=== PATIENT | female | born 1990 | race Hispanic/Latino ===

== ENCOUNTER 2017-03-21 15:41 | Inpatient (IN) | payer MEDICAID ==
[2017-03-21] MEDS ORDERED: CLEOCIN 900 MG/50 mL 900 MG/50 ML BAG IV ONE (18:59)
--- NOTE | 2017-03-21 19:01 | Emergency Department Report ---
- General Chief complaint: Skin Rash Stated complaint: RASH Time Seen by Provider: 03/21/17 17:29 Source: patient Mode of arrival: Ambulatory Limitations: No Limitations - History of Present Illness Initial comments: This is a 26-year-old female nontoxic, well nourished in appearance, no acute signs of distress presents to the ED with c/o of flare up of eczema. Patient stated this is a chronic condition for many years and is getting worse. 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 Patient denies any fever, chills, headache, nausea, vomiting, chest pain, shortness of breathe, numbness, tingling, stiff neck, or headache. Patient denies any allergies or PMH besides eczema. MD complaint: rash -: year(s) Location: generalized Severity: mild Severity scale (0 -10): 8 Quality: aching Consistency: constant Improves with: none Worsens with: none Context: none Associated symptoms: denies other symptoms Treatments Prior to Arrival: none - Related Data Home Medications Medication Instructions Recorded Confirmed Last Taken Loratadine [Loratadine] 10 mg PO DAILY 08/20/15 08/20/15 08/18/15 Previous Rx's Medication Instructions Recorded Last Taken Type Ferrous Sulfate [Feosol 325 MG tab] 325 mg PO BID #60 tablet 02/23/13 Unknown Rx Ibuprofen [Motrin] 800 mg PO TID PRN #30 tablet 02/23/13 Unknown Rx [id number]/Iron Fum/Folic/Docusate 1 each PO QDAY #30 tablet 02/23/13 Unknown Rx [ 19 Tablet] Docusate Sodium [Colace] 100 mg PO BID #60 capsule 02/25/13 Unknown Rx Ibuprofen [Motrin 600 MG tab] 600 mg PO Q8H PRN #30 tablet 08/21/15 Unknown Rx Multivitamin with Iron [Tab-A-Meagan 1 each PO DAILY #30 tablet 08/21/15 Unknown Rx with Iron] oxyCODONE /ACETAMINOPHEN [Percocet 1 tab PO Q6HR PRN #30 tablet 08/21/15 Unknown Rx 5/325] HYDROcodone/APAP 5-325 [[place] 1 each PO Q6HR PRN #20 tablet 03/09/16 Unknown Rx 5-325 mg TAB] Triamcinolone 0.5% 0.5 cream TP BID PRN #1 03/09/16 Unknown Rx diphenhydrAMINE [Benadryl CAP] 25 mg PO Q8HR PRN #20 capsule 03/09/16 Unknown Rx Allergies Allergy/AdvReac Type Severity Reaction Status Date / Time No Known Allergies Allergy Verified 02/23/13 07:46 Abscess Boil [facility] Chief Complaint: Skin Rash Stated Complaint: RASH Time Seen by Provider: 03/21/17 17:29 Home Medications: Home Medications Medication Instructions Recorded Confirmed Last Taken Loratadine [Loratadine] 10 mg PO DAILY 08/20/15 08/20/15 08/18/15 Previous Rx's Medication Instructions Recorded Last Taken Type Ferrous Sulfate [Feosol 325 MG tab] 325 mg PO BID #60 tablet 02/23/13 Unknown Rx Ibuprofen [Motrin] 800 mg PO TID PRN #30 tablet 02/23/13 Unknown Rx [id number]/Iron Fum/Folic/Docusate 1 each PO QDAY #30 tablet 02/23/13 Unknown Rx [ 19 Tablet] Docusate Sodium [Colace] 100 mg PO BID #60 capsule 02/25/13 Unknown Rx Ibuprofen [Motrin 600 MG tab] 600 mg PO Q8H PRN #30 tablet 08/21/15 Unknown Rx Multivitamin with Iron [Tab-A-Meagan 1 each PO DAILY #30 tablet 08/21/15 Unknown Rx with Iron] oxyCODONE /ACETAMINOPHEN [Percocet 1 tab PO Q6HR PRN #30 tablet 08/21/15 Unknown Rx 5/325] HYDROcodone/APAP 5-325 [[place] 1 each PO Q6HR PRN #20 tablet 03/09/16 Unknown Rx 5-325 mg TAB] Triamcinolone 0.5% 0.5 cream TP BID PRN #1 03/09/16 Unknown Rx diphenhydrAMINE [Benadryl CAP] 25 mg PO Q8HR PRN #20 capsule 03/09/16 Unknown Rx Allergies/Adverse Reactions: Allergies Allergy/AdvReac Type Severity Reaction Status Date / Time No Known Allergies Allergy Verified 02/23/13 07:46 ED Review of Systems ROS: Stated complaint: RASH Other details as noted in HPI Constitutional: denies: chills, fever Eyes: denies: eye pain, eye discharge, vision change ENT: denies: ear pain, throat pain Respiratory: denies: cough, shortness of breath, wheezing Cardiovascular: denies: chest pain, palpitations Endocrine: no symptoms reported Gastrointestinal: denies: abdominal pain, nausea, diarrhea Genitourinary: denies: urgency, dysuria, discharge Musculoskeletal: denies: back pain, joint swelling, arthralgia Skin: rash, lesions, pruritus Neurological: denies: headache, weakness, paresthesias Psychiatric: denies: anxiety, depression Hematological/Lymphatic: denies: easy bleeding, easy bruising ED Past Medical Hx - Past Medical History Previous Medical History?: Yes Hx Hypertension: No Hx Congestive Heart Failure: No Hx Diabetes: No Hx Deep Vein Thrombosis: No Hx Renal Disease: No Hx Sickle Cell Disease: No Hx Seizures: No Hx Psychiatric Treatment: Yes (anxiety) Hx Asthma: No Hx COPD: No Hx HIV: No Additional medical history: eczema, Skin rash - Surgical History Past Surgical History?: Yes Additional Surgical History: 4 c-sections - Social History Smoking Status: Current Every Day Smoker Substance Use Type: Prescribed - Medications Home Medications: Home Medications Medication Instructions Recorded Confirmed Last Taken Type Ferrous Sulfate [Feosol 325 MG tab] 325 mg PO BID #60 tablet 02/23/13 08/20/15 Unknown Rx Ibuprofen [Motrin] 800 mg PO TID PRN #30 tablet 02/23/13 08/20/15 Unknown Rx [id number]/Iron Fum/Folic/Docusate 1 each PO QDAY #30 tablet 02/23/13 08/20/15 Unknown Rx [ 19 Tablet] Docusate Sodium [Colace] 100 mg PO BID #60 capsule 02/25/13 08/20/15 Unknown Rx Loratadine [Loratadine] 10 mg PO DAILY 08/20/15 08/20/15 08/18/15 History Ibuprofen [Motrin 600 MG tab] 600 mg PO Q8H PRN #30 tablet 08/21/15 Unknown Rx Multivitamin with Iron [Tab-A-Meagan 1 each PO DAILY #30 tablet 08/21/15 Unknown Rx with Iron] oxyCODONE /ACETAMINOPHEN [Percocet 1 tab PO Q6HR PRN #30 tablet 08/21/15 Unknown Rx 5/325] HYDROcodone/APAP 5-325 [[place] 1 each PO Q6HR PRN #20 tablet 03/09/16 Unknown Rx 5-325 mg TAB] Triamcinolone 0.5% 0.5 cream TP BID PRN #1 03/09/16 Unknown Rx diphenhydrAMINE [Benadryl CAP] 25 mg PO Q8HR PRN #20 capsule 03/09/16 Unknown Rx ED Physical Exam - General Limitations: No Limitations General appearance: alert, in no apparent distress - Head Head exam: Present: atraumatic, normocephalic, normal inspection - Eye Eye exam: Present: normal appearance, PERRL, EOMI. Absent: scleral icterus, conjunctival injection, nystagmus, periorbital swelling, periorbital tenderness Pupils: Present: normal accommodation - ENT ENT exam: Present: normal exam, normal orophraynx, mucous membranes moist, TM's normal bilaterally, normal external ear exam - Neck Neck exam: Present: normal inspection, full ROM. Absent: tenderness, meningismus, lymphadenopathy, thyromegaly - Respiratory Respiratory exam: Present: normal lung sounds bilaterally. Absent: respiratory distress, wheezes, rales, rhonchi, stridor, chest wall tenderness, accessory muscle use, decreased breath sounds, prolonged expiratory - Cardiovascular Cardiovascular Exam: Present: regular rate, normal rhythm, normal heart sounds. Absent: irregular rhythm, systolic murmur, diastolic murmur, rubs, gallop - GI/Abdominal GI/Abdominal exam: Present: soft, normal bowel sounds. Absent: distended, tenderness, guarding, rebound, rigid, diminished bowel sounds - Rectal Rectal exam: Present: deferred - Extremities Exam Extremities exam: Present: normal inspection, full ROM, normal capillary refill. Absent: tenderness, pedal edema, joint swelling, calf tenderness - Back Exam Back exam: Present: normal inspection, full ROM. Absent: tenderness, CVA tenderness (R), CVA tenderness (L), muscle spasm, paraspinal tenderness, vertebral tenderness, rash noted - Neurological Exam Neurological exam: Present: alert, oriented X3, CN II-XII intact, normal gait, reflexes normal - Psychiatric Psychiatric exam: Present: normal affect, normal mood - Skin Skin exam: Present: warm, dry, intact, normal color, rash, other (diffuse crusting and erythema with urticaria ) - Other Other exam information: No abscess or swelling ntoed. NO cellultisit noted. ED Course Vital Signs 03/21/17 03/21/17 15:45 20:34 Temperature 97.9 F 98.7 F Pulse Rate 98 H 88 Respiratory 24 18 Rate Blood Pressure 157/97 O2 Sat by Pulse 98 100 Oximetry - Reevaluation(s) Reevaluation #1: 03/21/17 19:07 Patient is speaking in full sentences with no signs of distress noted. - Consultations Consultation #1: 03/21/17 20:37 Dr. Washington (patients Dermatolgoist) was called at [phone] with no answer or call back. Left a voicemail. Consultation #2: 03/21/17 21:17 Dr. Lin has been consulted about patient history, physical exam, and labs and examined patient and stated to admit patient for IV antibiotics. ED Medical Decision Making - Lab Data Result diagrams: 03/21/17 19:10 03/21/17 19:10 - Medical Decision Making This is a 26-year-old female that presents with eczema flare-up and contact dermatitis. Patient is stable and was examined by me. Patient received Clinda 900 IV and Solu-medrol in the ED. Patient is discharge with clinda for possible MRSA. CBC, BMP. Lacitact acid, and Blood cultures obtained with slight elevation of WBCs. Vital signs stable before discharge. Patients earth burner was called and left a voicemail for a return call back Dr. Washington at [phone] , but no call back has been made. Dr. Lin examined patient and stated to admit for IV antibiotcs and further eval. Dr. Dyer was consulted about patient history , physical exam, and labs. Patient was notified of plan of care and agrees for admission. Critical care attestation.: If time is entered above; I have spent that time in minutes in the direct care of this critically ill patient, excluding procedure time. ED Disposition Clinical Impression: Eczema Qualifiers: Eczema type: unspecified Qualified Code(s): L30.9 - Dermatitis, unspecified Cellulitis Qualifiers: Site of cellulitis: unspecified site Qualified Code(s): L03.90 - Cellulitis, unspecified Disposition: OP ADMIT IP TO THIS HOSP Is pt being admited?: Yes Does the pt Need Aspirin: No Condition: Stable
[2017-03-21 19:22] LABS: Eosinophils % (Auto) 3.2 % (0.0-4.3); Hematocrit 45.5 % (30.3-42.9); Mean Corpuscular HGB Conc 33 % (30-34); Mean Corpuscular Hemoglobin 32 pg (28-32); Mean Corpuscular Volume 98 fl (79-97); Platelet Count 445 K/mm3 (140-440); Red Blood Count 4.64 M/mm3 (3.65-5.03); Red Cell Distribution Width 16.2 % (13.2-15.2); White Blood Count 13.8 K/mm3 (4.5-11.0)
[2017-03-21 19:40] LABS: Anion Gap 23 mmol/L; BUN/Creatinine Ratio 24; Blood Urea Nitrogen 12 mg/dL (7-17); Calcium 9.8 mg/dL (8.4-10.2); Carbon Dioxide 22 mmol/L (22-30); Chloride 101.7 mmol/L (98-107); Glucose 82 mg/dL (65-100); Potassium 4.2 mmol/L (3.6-5.0); Sodium 142 mmol/L (137-145)
[2017-03-21] MEDS ORDERED: TORADOL ONE (22:43)
[2017-03-21] MEDS ORDERED: TORADOL IV ONE (22:45)
--- NOTE | 2017-03-21 23:00 | History and Physical Report ---
History of Present Illness Date of examination: 03/21/17 Date of admission: 03/21/17 Chief complaint: chief complaint: 26-year-old female presents with rash all over which has increased in intensity.--- 1 week History of present illness: history of present illness: 26-year-old female with history of eczema comes in for increasing redness of the rash over the last 1 week.patient has been having pain and redness on the rash. Pain is about 8 or 10. She feels that she has a staph infection with MRSA.Patient has eczema for many years and was diagnosed with MRSA infection in December 2016 and was treated and discharged.patient comes in for increasing redness over the last 1 week.patient in some distress because of pain. No exacerbating or relieving factors. Past History Past Medical History: other (eczema anemia chronic pain) Past Surgical History: Social history: lives with family, smoking (about half a pack a day), full code Family history: no significant family history Medications and Allergies Allergies Allergy/AdvReac Type Severity Reaction Status Date / Time No Known Allergies Allergy Verified 02/23/13 07:46 Home Medications Medication Instructions Recorded Confirmed Last Taken Type Ferrous Sulfate [Feosol 325 MG tab] 325 mg PO BID #60 tablet 02/23/13 08/20/15 Unknown Rx Ibuprofen [Motrin] 800 mg PO TID PRN #30 tablet 02/23/13 08/20/15 Unknown Rx [id number]/Iron Fum/Folic/Docusate 1 each PO QDAY #30 tablet 02/23/13 08/20/15 Unknown Rx [ 19 Tablet] Docusate Sodium [Colace] 100 mg PO BID #60 capsule 02/25/13 08/20/15 Unknown Rx Loratadine [Loratadine] 10 mg PO DAILY 08/20/15 08/20/15 08/18/15 History Ibuprofen [Motrin 600 MG tab] 600 mg PO Q8H PRN #30 tablet 08/21/15 Unknown Rx Multivitamin with Iron [Tab-A-Meagan 1 each PO DAILY #30 tablet 08/21/15 Unknown Rx with Iron] oxyCODONE /ACETAMINOPHEN [Percocet 1 tab PO Q6HR PRN #30 tablet 08/21/15 Unknown Rx 5/325] HYDROcodone/APAP 5-325 [[place] 1 each PO Q6HR PRN #20 tablet 03/09/16 Unknown Rx 5-325 mg TAB] Triamcinolone 0.5% 0.5 cream TP BID PRN #1 03/09/16 Unknown Rx diphenhydrAMINE [Benadryl CAP] 25 mg PO Q8HR PRN #20 capsule 03/09/16 Unknown Rx Review of Systems All systems: negative Integumentary: rash (consistent with eczema. Erythema present on many lesions. No pus.) Exam - Physical Exam Narrative exam: lying in bed comfortably - Constitutional Vitals: Temp Pulse Resp BP Pulse Ox 98.7 F 88 18 157/97 100 03/21/17 20:34 03/21/17 20:34 03/21/17 20:34 03/21/17 15:45 03/21/17 20:34 General appearance: Present: no acute distress, mild distress, well-nourished - EENT Eyes: Present: PERRL ENT: hearing intact, clear oral mucosa - Neck Neck: Present: supple, normal ROM - Respiratory Respiratory effort: normal Respiratory: bilateral: CTA - Cardiovascular Heart rate: 80 Rhythm: regular (80) Heart Sounds: Present: S1 & S2. Absent: rub, click - Extremities Extremities: pulses symmetrical, No edema Peripheral Pulses: within normal limits - Abdominal General gastrointestinal: Present: soft, non-tender, non-distended, normal bowel sounds Female genitourinary: Present: normal - Integumentary Integumentary: Present: clear, warm, dry, erythema, rash (eczematous rash all over the body especially chest and both upper extremities and lower extr.) - Musculoskeletal Musculoskeletal: gait normal, strength equal bilaterally - Psychiatric Psychiatric: appropriate mood/affect, intact judgment & insight - Neurologic Neurologic: CNII-XII intact, moves all extremities - Allied Health Allied health notes reviewed: nursing, social work, case management Results - Labs CBC & Chem 7: 03/21/17 19:10 03/21/17 19:10 Labs: Laboratory Last Values WBC 13.8 K/mm3 (4.5-11.0) H 03/21/17 19:10 RBC 4.64 M/mm3 (3.65-5.03) 03/21/17 19:10 Hgb 15.0 gm/dl (10.1-14.3) H 03/21/17 19:10 Hct 45.5 % (30.3-42.9) H 03/21/17 19:10 MCV 98 fl (79-97) H 03/21/17 19:10 MCH 32 pg (28-32) 03/21/17 19:10 MCHC 33 % (30-34) 03/21/17 19:10 RDW 16.2 % (13.2-15.2) H 03/21/17 19:10 Plt Count 445 K/mm3 (140-440) H 03/21/17 19:10 Lymph % (Auto) 17.8 % (13.4-35.0) 03/21/17 19:10 [place] % (Auto) 7.1 % (0.0-7.3) 03/21/17 19:10 Eos % (Auto) 3.2 % (0.0-4.3) 03/21/17 19:10 Baso % (Auto) 1.0 % (0.0-1.8) 03/21/17 19:10 Lymph # 2.5 K/mm3 (1.2-5.4) 03/21/17 19:10 [place] # 1.0 K/mm3 (0.0-0.8) H 03/21/17 19:10 Eos # 0.4 K/mm3 (0.0-0.4) 03/21/17 19:10 Baso # 0.1 K/mm3 (0.0-0.1) 03/21/17 19:10 Seg Neutrophils % 70.9 % (40.0-70.0) H 03/21/17 19:10 Seg Neutrophils # 9.8 K/mm3 (1.8-7.7) H 03/21/17 19:10 Sodium 142 mmol/L (137-145) 03/21/17 19:10 Potassium 4.2 mmol/L (3.6-5.0) 03/21/17 19:10 Chloride 101.7 mmol/L (98-107) 03/21/17 19:10 Carbon Dioxide 22 mmol/L (22-30) 03/21/17 19:10 Anion Gap 23 mmol/L 03/21/17 19:10 BUN 12 mg/dL (7-17) 03/21/17 19:10 Creatinine 0.5 mg/dL (0.7-1.2) L 03/21/17 19:10 Estimated GFR > 60 ml/min 03/21/17 19:10 BUN/Creatinine Ratio 24 % 03/21/17 19:10 Glucose 82 mg/dL (65-100) 03/21/17 19:10 Lactic Acid 1.10 mmol/L (0.7-2.0) 03/21/17 20:33 Calcium 9.8 mg/dL (8.4-10.2) 03/21/17 19:10 Short CBC 03/21/17 Range/Units 19:10 WBC 13.8 H (4.5-11.0) K/mm3 Hgb 15.0 H (10.1-14.3) gm/dl Hct 45.5 H (30.3-42.9) % Plt Count 445 H (140-440) K/mm3 BMP 03/21/17 19:10 Sodium 142 Potassium 4.2 Chloride 101.7 Carbon Dioxide 22 BUN 12 Creatinine 0.5 L Glucose 82 Calcium 9.8 Assessment and Plan Advance Directives: Yes (full code) VTE prophylaxis?: Chemical Plan of care discussed with patient/family: Yes - Patient Problems (1) Cellulitis Current Visit: Yes Status: Acute Qualifiers: Site of cellulitis: unspecified site Qualified Code(s): L03.90 - Cellulitis , unspecified Plan to address problem: patient has rash which is consistent with eczema all over the body. Some of the lesions are erythematous. Also painful. Patient had MRSA infection in December 2016. Patient was apparently admitted and treated.patient may have infection of the skin. We will treat it as cellulitis.patient initiated on clindamycin IV every 8 hours. ID consulted. (2) Eczema Current Visit: Yes Status: Chronic Qualifiers: Eczema type: unspecified Qualified Code(s): L30.9 - Dermatitis, unspecified Plan to address problem: Patient has rash all over and the lesions are inflamed. Patient initiated on IV Solu-Medrol 60 mg every 8 hours.patient not initiated on steroid creams/ ointment. We will see the response for IV Solu-Medrol (3) Chronic pain Current Visit: Yes Status: Acute Qualifiers: Chronic pain type: chronic pain syndrome Qualified Code(s): G89.4 - Chronic pain syndrome Plan to address problem: patient is here on IV morphine for the pain (4) DVT prophylaxis Current Visit: Yes Status: Acute Plan to address problem: patient initiated on Lovenox.
[2017-03-21] MEDS ORDERED: KENALOG TP PRN (23:01)
[2017-03-21] MEDS ORDERED: ZOFRAN IV PRN (23:06)
[2017-03-21] MEDS ORDERED: MILK OF MAGNESIA PO PRN (23:06)
[2017-03-21] MEDS ORDERED: DULCOLAX PR PRN (23:06)
[2017-03-21] MEDS ORDERED: AMBIEN PO PRN (23:06)
[2017-03-21] MEDS ORDERED: TYLENOL PO PRN (23:06)
[2017-03-21] MEDS ORDERED: D5NS 1,000 ML IV SCH (23:45)
[2017-03-22] MEDS: CLEOCIN 900 MG/50 mL 900 MG/50 ML BAG IV SCH ×4 (00:15→23:55)
[2017-03-22] MEDS: PEPCID PO SCH ×3 (00:17→21:21)
[2017-03-22] MEDS: BENADRYL PO PRN ×2 (00:40→08:46)
[2017-03-22] MEDS: MORPHINE IV PRN ×3 (00:40→21:23)
[2017-03-22] MEDS: PERCOCET 5/325 PO PRN (08:46)
[2017-03-22] MEDS: COLACE PO SCH ×2 (10:53→21:21)
[2017-03-22] MEDS: CLARITIN PO SCH (10:53)
--- NOTE | 2017-03-22 11:34 | Consultation ---
History of Present Illness - Reason for Consult Consult date: 03/22/17 extensive eczema / cellulitis Requesting physician: JEFFERY SEGUNDO - History of Present Illness 26 years old female with history of extensive eczema, recently admitted at [facility] due to MRSA bacteremia treated with IV antibiotics for 4 weeks in January 2017, unfortunately patient was readmitted on 03/21/2017 due to a week history of worsening skin rash with erythema and tenderness associated with malaise, nausea and generalized weakness. Rash is consistent with scaly thick plaques with peripheral erythema covering the entire body including face. Patient is currently on prednisone at 30 mg a day which she was tapering down when the rash became worse. She is also on methotrexate. Her per diem interpreter Dr. Crowell and her infectious disease doctor is Dr. Dejesus at [facility]. She reports subjective fever. In the emergency room, she was 97.9, heart rate 98, respiration 24, blood pressure 157/97. Initial white count 13.8. Creat 0.5. Microbiology: Blood cultures: 03/21 ngtt Current Antimicrobials: Clindamycin 03/21 Previous Antimicrobials: Past History Past Medical History: other (eczema anemia chronic pain) Past Surgical History: Social history: lives with family, smoking (about half a pack a day), full code Family history: no significant family history Medications and Allergies Allergies Allergy/AdvReac Type Severity Reaction Status Date / Time No Known Allergies Allergy Verified 02/23/13 07:46 Home Medications Medication Instructions Recorded Confirmed Last Taken Type Ferrous Sulfate [Feosol 325 MG tab] 325 mg PO BID #60 tablet 02/23/13 03/22/17 Unknown Rx Ibuprofen [Motrin] 800 mg PO TID PRN #30 tablet 02/23/13 03/22/17 Unknown Rx [id number]/Iron Fum/Folic/Docusate 1 each PO QDAY #30 tablet 02/23/13 03/22/17 Unknown Rx [ 19 Tablet] Docusate Sodium [Colace] 100 mg PO BID #60 capsule 02/25/13 03/22/17 Unknown Rx Loratadine [Loratadine] 10 mg PO DAILY 08/20/15 03/22/17 08/18/15 History Ibuprofen [Motrin 600 MG tab] 600 mg PO Q8H PRN #30 tablet 08/21/15 03/22/17 Unknown Rx Multivitamin with Iron [Tab-A-Meagan 1 each PO DAILY #30 tablet 08/21/15 03/22/17 Unknown Rx with Iron] oxyCODONE /ACETAMINOPHEN [Percocet 1 tab PO Q6HR PRN #30 tablet 08/21/15 Unknown Rx 5/325] HYDROcodone/APAP 5-325 [[place] 1 each PO Q6HR PRN #20 tablet 03/09/16 03/22/17 Unknown Rx 5-325 mg TAB] Triamcinolone 0.5% 0.5 cream TP BID PRN #1 03/09/16 03/22/17 Unknown Rx diphenhydrAMINE [Benadryl CAP] 25 mg PO Q8HR PRN #20 capsule 03/09/16 03/22/17 Unknown Rx Sertraline [Zoloft] 50 mg PO DAILY 03/22/17 03/22/17 1 Day Ago History ~03/21/17 Active Meds: Active Medications Acetaminophen (Tylenol) 650 mg PO Q4H PRN PRN Reason: Pain MILD(1-3)/Fever >100.5/CEDEÑO Bisacodyl (Dulcolax) 10 mg [place] QDAY PRN PRN Reason: Constipation unrelieved by MOM Diphenhydramine HCl (Benadryl) 25 mg PO Q8H PRN PRN Reason: Itching Last Admin: 03/22/17 08:46 Dose: 25 mg Docusate Sodium (Colace) 100 mg PO BID [facility] Last Admin: 03/22/17 10:53 Dose: 100 mg Enoxaparin Sodium (Lovenox) 40 mg SUB-Q QDAY@2200 [facility] Famotidine (Pepcid) 20 mg PO BID [facility] Last Admin: 03/22/17 10:53 Dose: 20 mg Clindamycin HCl (Cleocin 900 Mg/50 Ml) 900 mg in 50 mls @ 100 mls/hr IV Q8H [facility] PRN Reason: Protocol Last Admin: 03/22/17 08:46 Dose: 100 mls/hr Loratadine (Claritin) 10 mg PO DAILY [facility] Last Admin: 03/22/17 10:53 Dose: 10 mg Magnesium Hydroxide (Milk Of Magnesia) 30 ml PO Q4H PRN PRN Reason: Constipation Methylprednisolone Sodium Succinate (Solu-Medrol) 60 mg IV Q8HR [facility] Last Admin: 03/22/17 06:23 Dose: 60 mg Morphine Sulfate (Morphine) 4 mg IV Q4H PRN PRN Reason: Pain , Severe (7-10) Last Admin: 03/22/17 00:40 Dose: 4 mg Ondansetron HCl (Zofran) 4 mg IV Q8H PRN PRN Reason: N/V unrelieved by Reglan Oxycodone/Acetaminophen (Percocet 5/325) 1 tab PO Q6H PRN PRN Reason: Pain, Moderate (4-6) Last Admin: 03/22/17 08:46 Dose: 1 tab Triamcinolone Acetonide (Kenalog) 0.5 applic TP BID PRN PRN Reason: itchiness Zolpidem Tartrate (Ambien) 5 mg PO QHS PRN PRN Reason: Insomnia Review of Systems All systems: negative (as per HPI rest neg) Physical Examination - Physical Exam Narrative exam: General appearance: Alert in NAD, conversant, anxious Eyes: anicteric sclerae, moist conjunctivae; no lid-lag; PERRLA HENT: Atraumatic; oropharynx clear Neck: Trachea midline; supple, no thyromegaly or lymphadenopathy Lungs: CTA CV: RRR, no murmurs Abdomen: Soft, non-tender; no masses or hepatosplenomegaly Extremities: No peripheral edema or extremity lymphadenopathy Skin: extensive scaly thick skin plaques with peripheral erythema and tenderness covering entire body includig face, scratch healy seen Psych: anxious. Neuro: alert and oriented x 3. Moving all extermities Lines: No CVL / PICC - Constitutional Vitals: Vital Signs Temp Pulse Resp BP Pulse Ox 97.5 F L 56 L 20 121/76 95 03/22/17 07:55 03/22/17 07:55 03/22/17 07:55 03/22/17 07:55 03/22/17 07:55 Temperature -Last 24 Hours Temperature 97.5 F Temperature 98.3 F Temperature 98.7 F Temperature 97.9 F Results - Labs CBC & Chem 7: 03/21/17 19:10 03/21/17 19:10 Labs: Abnormal lab results 03/21/17 03/21/17 Range/Units 19:10 19:10 WBC 13.8 H (4.5-11.0) K/mm3 Hgb 15.0 H (10.1-14.3) gm/dl Hct 45.5 H (30.3-42.9) % MCV 98 H (79-97) fl RDW 16.2 H (13.2-15.2) % Plt Count 445 H (140-440) K/mm3 [place] # 1.0 H (0.0-0.8) K/mm3 Seg Neutrophils % 70.9 H (40.0-70.0) % Seg Neutrophils # 9.8 H (1.8-7.7) K/mm3 Creatinine 0.5 L (0.7-1.2) mg/dL Assessment and Plan Assessment: 1) SIRS: Present on admission, manifested by mild tachycardia and leukocytosis. Etiology most likely extensive eczema +/- superimposed celullitis. 2) Extensive eczema with superimposed cellulitis 3) History of MRSA septicemia in January 2017 Plan: -follow-up blood cultures -Derm consult -check CRP -add vancomycin -continue clindamycin -agree with IV steroids -Psych consult for anxiety eval -obtain [facility] Dr Djeesus' records Thank you Dr Segundo for your consultation, will follow up with you. Malinda Kerns MD Infectious Diseases Specialist [facility] ([facility] M [phone] O [phone]
[2017-03-22] MEDS ORDERED: VANCOMYCIN PHARMACY TO DOSE IV SCH (12:00)
[2017-03-22] MEDS ORDERED: VANCOMYCIN VIAL 1,000 MG in NACL 0.9% 100 ML IV SCH (12:00)
[2017-03-22] MEDS: ZOLOFT PO SCH (12:12)
[2017-03-22] MEDS ORDERED: VANCOMYCIN 2,000 MG in NACL 0.9% 500 ML 500 ML IV ONE (14:00)
--- NOTE | 2017-03-22 19:25 | Progress Note ---
Assessment and Plan Assessment and plan: --Generalized eczema; on Vanco and clindamycin and steroids Contact isolation, local care, no hematology service is not available, ID following --History of MRSA; contact isolation, follow cultures --SIRS/leukocytosis, continue antibiotics, follow cultures --Cellulitis; continue current antibiotics follow cultures and supportive care --Depression; continue Zoloft --DVT prophylaxis; Lovenox ID evaluation noted and appreciated History Interval history: Patient and examined medical records reviewed Minimal improvement of rash On antibiotics ID has evaluated Contact isolation Hospitalist Physical - Constitutional Vitals: Temp Pulse Resp BP Pulse Ox 98.5 F 82 20 127/79 94 03/22/17 17:20 03/22/17 17:20 03/22/17 17:20 03/22/17 17:20 03/22/17 17:20 General appearance: Present: no acute distress, mild distress, well-nourished - EENT Eyes: Present: PERRL, EOM intact - Neck Neck: Present: supple, normal ROM - Respiratory Respiratory effort: normal Respiratory: negative: rales, rhonchi, wheezing - Cardiovascular Rhythm: regular Heart Sounds: Present: S1 & S2 - Extremities Extremities: no ischemia, abnormal (generalized eczema/areas of cellulitis) Extremity abnormal: edema - Abdominal General gastrointestinal: soft, non-tender, non-distended, normal bowel sounds - Integumentary Integumentary: Present: rash (generalized eczema/cellulitis) - Psychiatric Psychiatric: appropriate mood/affect, cooperative - Neurologic Neurologic: moves all extremities Results - Labs CBC & Chem 7: 03/21/17 19:10 03/21/17 19:10 Labs: Laboratory Last Values WBC 13.8 K/mm3 (4.5-11.0) H 03/21/17 19:10 RBC 4.64 M/mm3 (3.65-5.03) 03/21/17 19:10 Hgb 15.0 gm/dl (10.1-14.3) H 03/21/17 19:10 Hct 45.5 % (30.3-42.9) H 03/21/17 19:10 MCV 98 fl (79-97) H 03/21/17 19:10 MCH 32 pg (28-32) 03/21/17 19:10 MCHC 33 % (30-34) 03/21/17 19:10 RDW 16.2 % (13.2-15.2) H 03/21/17 19:10 Plt Count 445 K/mm3 (140-440) H 03/21/17 19:10 Lymph % (Auto) 17.8 % (13.4-35.0) 03/21/17 19:10 [place] % (Auto) 7.1 % (0.0-7.3) 03/21/17 19:10 Eos % (Auto) 3.2 % (0.0-4.3) 03/21/17 19:10 Baso % (Auto) 1.0 % (0.0-1.8) 03/21/17 19:10 Lymph # 2.5 K/mm3 (1.2-5.4) 03/21/17 19:10 [place] # 1.0 K/mm3 (0.0-0.8) H 03/21/17 19:10 Eos # 0.4 K/mm3 (0.0-0.4) 03/21/17 19:10 Baso # 0.1 K/mm3 (0.0-0.1) 03/21/17 19:10 Seg Neutrophils % 70.9 % (40.0-70.0) H 03/21/17 19:10 Seg Neutrophils # 9.8 K/mm3 (1.8-7.7) H 03/21/17 19:10 Sodium 142 mmol/L (137-145) 03/21/17 19:10 Potassium 4.2 mmol/L (3.6-5.0) 03/21/17 19:10 Chloride 101.7 mmol/L (98-107) 03/21/17 19:10 Carbon Dioxide 22 mmol/L (22-30) 03/21/17 19:10 Anion Gap 23 mmol/L 03/21/17 19:10 BUN 12 mg/dL (7-17) 03/21/17 19:10 Creatinine 0.5 mg/dL (0.7-1.2) L 03/21/17 19:10 Estimated GFR > 60 ml/min 03/21/17 19:10 BUN/Creatinine Ratio 24 % 03/21/17 19:10 Glucose 82 mg/dL (65-100) 03/21/17 19:10 Lactic Acid 1.10 mmol/L (0.7-2.0) 03/21/17 20:33 Calcium 9.8 mg/dL (8.4-10.2) 03/21/17 19:10 C-Reactive Protein 0.40 mg/dL (0.00-1.30) 03/22/17 13:26
[2017-03-22] MEDS: LOVENOX SUB-Q SCH (21:20)
[2017-03-23] MEDS: VANCOMYCIN 1,250 MG in NACL 0.9% 250ML 250 ML IV SCH ×3 (02:13→17:22)
[2017-03-23] MEDS: PERCOCET 5/325 PO PRN ×2 (02:26→22:06)
[2017-03-23] MEDS: CLEOCIN 900 MG/50 mL 900 MG/50 ML BAG IV SCH ×2 (09:15→17:20)
[2017-03-23] MEDS: MORPHINE IV PRN ×2 (09:41→19:12)
--- NOTE | 2017-03-23 09:59 | Progress Note ---
Assessment and Plan Assessment and plan: --Generalized extensive eczema; on antibiotics and steroids, topical care, ID following, --History of MRSA; contact isolation, follow cultures, vancomycin and clindamycin --SIRS/leukocytosis, continue antibiotics, follow cultures --Cellulitis; continue current antibiotics follow cultures and supportive care --Depression/anxiety; continue Zoloft, psych evaluation --DVT prophylaxis; Lovenox This patient is hard stick, we will get midline of PICC line for IV antibiotics Plan of care discussed with the patient and her nurse Continue contact isolation Hospitalist Physical - Constitutional Vitals: Temp Pulse Resp BP Pulse Ox 98.1 F 76 20 124/76 97 03/23/17 07:25 03/23/17 07:25 03/23/17 07:25 03/23/17 07:25 03/23/17 07:25 General appearance: Present: no acute distress, mild distress, well-nourished Results - Labs CBC & Chem 7: 03/21/17 19:10 03/21/17 19:10 Labs: Laboratory Last Values WBC 13.8 K/mm3 (4.5-11.0) H 03/21/17 19:10 RBC 4.64 M/mm3 (3.65-5.03) 03/21/17 19:10 Hgb 15.0 gm/dl (10.1-14.3) H 03/21/17 19:10 Hct 45.5 % (30.3-42.9) H 03/21/17 19:10 MCV 98 fl (79-97) H 03/21/17 19:10 MCH 32 pg (28-32) 03/21/17 19:10 MCHC 33 % (30-34) 03/21/17 19:10 RDW 16.2 % (13.2-15.2) H 03/21/17 19:10 Plt Count 445 K/mm3 (140-440) H 03/21/17 19:10 Lymph % (Auto) 17.8 % (13.4-35.0) 03/21/17 19:10 [place] % (Auto) 7.1 % (0.0-7.3) 03/21/17 19:10 Eos % (Auto) 3.2 % (0.0-4.3) 03/21/17 19:10 Baso % (Auto) 1.0 % (0.0-1.8) 03/21/17 19:10 Lymph # 2.5 K/mm3 (1.2-5.4) 03/21/17 19:10 [place] # 1.0 K/mm3 (0.0-0.8) H 03/21/17 19:10 Eos # 0.4 K/mm3 (0.0-0.4) 03/21/17 19:10 Baso # 0.1 K/mm3 (0.0-0.1) 03/21/17 19:10 Seg Neutrophils % 70.9 % (40.0-70.0) H 03/21/17 19:10 Seg Neutrophils # 9.8 K/mm3 (1.8-7.7) H 03/21/17 19:10 Sodium 142 mmol/L (137-145) 03/21/17 19:10 Potassium 4.2 mmol/L (3.6-5.0) 03/21/17 19:10 Chloride 101.7 mmol/L (98-107) 03/21/17 19:10 Carbon Dioxide 22 mmol/L (22-30) 03/21/17 19:10 Anion Gap 23 mmol/L 03/21/17 19:10 BUN 12 mg/dL (7-17) 03/21/17 19:10 Creatinine 0.5 mg/dL (0.7-1.2) L 03/21/17 19:10 Estimated GFR > 60 ml/min 03/21/17 19:10 BUN/Creatinine Ratio 24 % 03/21/17 19:10 Glucose 82 mg/dL (65-100) 03/21/17 19:10 Lactic Acid 1.10 mmol/L (0.7-2.0) 03/21/17 20:33 Calcium 9.8 mg/dL (8.4-10.2) 03/21/17 19:10 C-Reactive Protein 0.40 mg/dL (0.00-1.30) 03/22/17 13:26
[2017-03-23] MEDS: CLARITIN PO SCH (10:13)
[2017-03-23] MEDS: PEPCID PO SCH ×2 (10:14→21:56)
[2017-03-23] MEDS: ZOLOFT PO SCH (10:14)
[2017-03-23] MEDS: COLACE PO SCH ×2 (10:14→21:56)
--- NOTE | 2017-03-23 12:18 | Progress Note ---
Assessment and Plan Assessment: 1) SIRS: improving. Etiology most likely extensive eczema +/- superimposed celullitis. 2) Extensive eczema with superimposed cellulitis. CRP=0.4 3) History of MRSA septicemia in January 2017 Plan: -ok to place a midline in view of extensive rash -continue clindamycin and vancomycin -agree with IV steroids -Psych consult for anxiety eval -obtain AID[facility] Dr Dejesus' records - pending Thank you Dr Dyer for your consultation, will follow up with you. Malinda Kerns MD Infectious Diseases Specialist [facility], [place], [facility] ([facility] M [phone] O [phone] Subjective Date of service: 03/23/17 Interval history: Feels weak, frustrated and anxious. No fever. Microbiology: Blood cultures: 03/21 ngtt Current Antimicrobials: Clindamycin 03/21 vanco Previous Antimicrobials: Objective - Exam Narrative Exam: General appearance: Alert in NAD, conversant, anxious Eyes: anicteric sclerae, moist conjunctivae; no lid-lag; PERRLA HENT: Atraumatic; oropharynx clear Neck: Trachea midline; supple, no thyromegaly or lymphadenopathy Lungs: CTA CV: RRR, no murmurs Abdomen: Soft, non-tender; no masses or hepatosplenomegaly Extremities: No peripheral edema or extremity lymphadenopathy Skin: extensive scaly thick skin plaques with peripheral erythema and tenderness covering entire body including face - better, scratch healy seen Psych: anxious. Neuro: alert and oriented x 3. Moving all extermities Lines: No CVL / PICC - Constitutional Vitals: Vital Signs Temp Pulse Resp BP Pulse Ox 98.1 F 76 20 124/76 97 03/23/17 07:25 03/23/17 07:25 03/23/17 07:25 03/23/17 07:25 03/23/17 07:25 Temperature -Last 24 Hours Temperature 98.1 F Temperature 98.3 F Temperature 98.5 F - Labs CBC & Chem 7: 03/21/17 19:10 03/21/17 19:10
[2017-03-23] MEDS ORDERED: MORPHINE IV PRN (20:41)
[2017-03-23] MEDS: LOVENOX SUB-Q SCH (21:55)
[2017-03-24] MEDS: CLEOCIN 900 MG/50 mL 900 MG/50 ML BAG IV SCH ×2 (00:33→08:00)
[2017-03-24] MEDS: VANCOMYCIN 1,250 MG in NACL 0.9% 250ML 250 ML IV SCH ×3 (01:57→17:42)
[2017-03-24 07:29] LABS: Basophils % (Auto) 0.2 % (0.0-1.8); Hematocrit 38.8 % (30.3-42.9); Hemoglobin 12.9 gm/dl (10.1-14.3); Mean Corpuscular HGB Conc 33 % (30-34); Mean Corpuscular Hemoglobin 33 pg (28-32); Mean Corpuscular Volume 98 fl (79-97); Platelet Count 387 K/mm3 (140-440); Red Blood Count 3.96 M/mm3 (3.65-5.03); Red Cell Distribution Width 15.5 % (13.2-15.2); White Blood Count 15.2 K/mm3 (4.5-11.0)
[2017-03-24 07:47] LABS: Anion Gap 18 mmol/L; BUN/Creatinine Ratio 28; Blood Urea Nitrogen 14 mg/dL (7-17); Carbon Dioxide 23 mmol/L (22-30); Chloride 101.9 mmol/L (98-107); Glucose 111 mg/dL (65-100); Potassium 4.2 mmol/L (3.6-5.0); Sodium 139 mmol/L (137-145)
[2017-03-24] MEDS: MORPHINE IV PRN ×2 (08:35→21:43)
[2017-03-24] MEDS: CLARITIN PO SCH (10:06)
[2017-03-24] MEDS: ZOLOFT PO SCH (10:06)
[2017-03-24] MEDS: PEPCID PO SCH ×2 (10:06→21:36)
[2017-03-24] MEDS: COLACE PO SCH ×2 (10:08→21:36)
--- NOTE | 2017-03-24 11:23 | Progress Note ---
Assessment and Plan Assessment: 1) SIRS: improving. Etiology most likely extensive eczema +/- superimposed celullitis. 2) Extensive eczema with superimposed cellulitis. CRP=0.4 - better 3) History of MRSA septicemia in January 2017 Plan: -continue vancomycin -stop clindamycin -change IV steroids to PO Thank you Dr Dyer for your consultation, will follow up with you. Malinda Kerns MD Infectious Diseases Specialist [facility] M [phone] O [phone] Subjective Date of service: 03/24/17 Principal diagnosis: SIRS Interval history: Feels still weak, sore allover . No fever. Microbiology: Blood cultures: 03/21 ngtt Current Antimicrobials: Clindamycin 03/21 vanco Previous Antimicrobials: Objective - Exam Narrative Exam: General appearance: Alert in NAD, conversant, anxious Eyes: anicteric sclerae, moist conjunctivae; no lid-lag; PERRLA HENT: Atraumatic; oropharynx clear Neck: Trachea midline; supple, no thyromegaly or lymphadenopathy Lungs: CTA CV: RRR, no murmurs Abdomen: Soft, non-tender; no masses or hepatosplenomegaly Extremities: No peripheral edema or extremity lymphadenopathy Skin: extensive scaly thick skin plaques with peripheral erythema and tenderness covering entire body including face - better, scratch healy seen Psych: anxious. Neuro: alert and oriented x 3. Moving all extermities Lines: No CVL / PICC - Constitutional Vitals: Vital Signs Temp Pulse Resp BP Pulse Ox 98.2 F 64 20 139/88 96 03/24/17 08:20 03/24/17 08:20 03/24/17 08:20 03/24/17 08:20 03/24/17 08:20 Temperature -Last 24 Hours Temperature 98.2 F Temperature 98.4 F - Labs CBC & Chem 7: 03/24/17 06:32 03/24/17 06:32 Labs: Abnormal lab results 03/24/17 03/24/17 Range/Units 06:32 06:32 WBC 15.2 H (4.5-11.0) K/mm3 MCV 98 H (79-97) fl MCH 33 H (28-32) pg RDW 15.5 H (13.2-15.2) % Lymph % (Auto) 13.0 L (13.4-35.0) % [place] # 1.0 H (0.0-0.8) K/mm3 Seg Neutrophils % 80.0 H (40.0-70.0) % Seg Neutrophils # 12.1 H (1.8-7.7) K/mm3 Creatinine 0.5 L (0.7-1.2) mg/dL Glucose 111 H (65-100) mg/dL
--- NOTE | 2017-03-24 13:12 | Progress Note ---
Assessment and Plan - Patient Problems (1) Cellulitis Current Visit: Yes Status: Acute Qualifiers: Site of cellulitis: unspecified site Qualified Code(s): L03.90 - Cellulitis , unspecified Plan to address problem: patient has rash which is consistent with eczema all over the body. Some of the lesions are erythematous. Also painful. Patient had MRSA infection in December 2016. Patient was apparently admitted and treated.patient may have infection of the skin. We will treat it as cellulitis.patient initiated on clindamycin IV every 8 hours. (2) Eczema Current Visit: Yes Status: Chronic Qualifiers: Eczema type: unspecified Qualified Code(s): L30.9 - Dermatitis, unspecified Plan to address problem: Patient has rash all over and the lesions are inflamed. Patient initiated on IV Solu-Medrol 60 mg every 8 hours.patient not initiated on steroid creams/ ointment. We will see the response for IV Solu-Medrol (3) Chronic pain Current Visit: Yes Status: Acute Qualifiers: Chronic pain type: chronic pain syndrome Qualified Code(s): G89.4 - Chronic pain syndrome Plan to address problem: patient is here on IV morphine for the pain (4) DVT prophylaxis Current Visit: Yes Status: Acute Plan to address problem: patient initiated on Lovenox. Subjective Date of service: 03/24/17 Principal diagnosis: SIRS Interval history: Much improvement present Objective - Exam Narrative Exam: lying in bed comfortably - Constitutional Vitals: Vital Signs - 12hr 03/24/17 08:20 Temperature 98.2 F Pulse Rate 64 Respiratory 20 Rate Blood Pressure 139/88 O2 Sat by Pulse 96 Oximetry General appearance: Present: no acute distress, well-nourished - EENT Eyes: PERRL, EOM intact ENT: hearing intact, clear oral mucosa Ears: bilateral: normal - Neck Neck: supple, normal ROM - Respiratory Respiratory effort: normal Respiratory: bilateral: CTA - Breasts Breasts: normal - Cardiovascular Rhythm: regular Heart Sounds: Present: S1 & S2. Absent: gallop, rub Extremities: pulses intact, No edema, normal color, Full ROM - Gastrointestinal General gastrointestinal: Present: soft, non-tender, non-distended, normal bowel sounds Rectal Exam: deferred - Genitourinary Female genitourinary: normal - Integumentary Integumentary: clear, warm, dry - Musculoskeletal Musculoskeletal: 1, strength equal bilaterally - Neurologic Neurologic: CNII-XII intact, moves all extremities - Psychiatric Psychiatric: memory intact, appropriate mood/affect, intact judgment & insight - Allied health notes Allied health notes reviewed: nursing, case management - Labs CBC & Chem 7: 03/24/17 06:32 03/24/17 06:32 Labs: Abnormal lab results 03/24/17 03/24/17 Range/Units 06:32 06:32 WBC 15.2 H (4.5-11.0) K/mm3 MCV 98 H (79-97) fl MCH 33 H (28-32) pg RDW 15.5 H (13.2-15.2) % Lymph % (Auto) 13.0 L (13.4-35.0) % [place] # 1.0 H (0.0-0.8) K/mm3 Seg Neutrophils % 80.0 H (40.0-70.0) % Seg Neutrophils # 12.1 H (1.8-7.7) K/mm3 Creatinine 0.5 L (0.7-1.2) mg/dL Glucose 111 H (65-100) mg/dL
[2017-03-24] MEDS: PERCOCET 5/325 PO PRN (13:13)
[2017-03-24] MEDS: LOVENOX SUB-Q SCH ×2 (21:36→21:44)
[2017-03-25] MEDS: VANCOMYCIN 1,250 MG in NACL 0.9% 250ML 250 ML IV SCH (02:33)
[2017-03-25] MEDS: COLACE PO SCH ×2 (09:02→21:56)
[2017-03-25] MEDS: ZOLOFT PO SCH (09:02)
[2017-03-25] MEDS: CLARITIN PO SCH (09:02)
[2017-03-25] MEDS: PEPCID PO SCH ×2 (09:02→21:57)
[2017-03-25] MEDS: MORPHINE IV PRN (09:03)
--- NOTE | 2017-03-25 09:33 | Progress Note ---
Assessment and Plan Assessment: 1) SIRS: resolved. Etiology most likely extensive eczema +/- superimposed celullitis. 2) Extensive eczema with superimposed cellulitis. CRP=0.4 - better 3) History of MRSA septicemia in January 2017 Plan: -stop vancomycin -start ceftin 500 mg po q12h total 7 days -change IV steroids to PO Ok to d/c from ID stand point Thank you Dr Dyer for your consultation, will follow up with you. Malinda Kerns MD Infectious Diseases Specialist [facility] ([facility] M [phone] O [phone] Subjective Date of service: 03/25/17 Principal diagnosis: SIRS Interval history: Feels sad and crying she said she had no way to go if she was discharged today. No fever. Microbiology: Blood cultures: 03/21 neg Current Antimicrobials: vanco 03/22 Previous Antimicrobials: Clindamycin 03/21 Objective - Exam Narrative Exam: General appearance: Alert in NAD, conversant, anxious Eyes: anicteric sclerae, moist conjunctivae; no lid-lag; PERRLA HENT: Atraumatic; oropharynx clear Neck: Trachea midline; supple, no thyromegaly or lymphadenopathy Lungs: CTA CV: RRR, no murmurs Abdomen: Soft, non-tender; no masses or hepatosplenomegaly Extremities: No peripheral edema or extremity lymphadenopathy Skin: extensive scaly thick skin plaques with peripheral erythema and tenderness covering entire body including face - better Psych: anxious. Neuro: alert and oriented x 3. Moving all extermities Lines: No CVL / PICC - Constitutional Vitals: Vital Signs Temp Pulse Resp BP Pulse Ox 97.9 F 53 L 20 146/96 95 03/25/17 07:44 03/25/17 07:44 03/25/17 07:44 03/25/17 07:44 03/25/17 07:44 Temperature -Last 24 Hours Temperature 97.9 F Temperature 98.2 F Temperature 97.6 F - Labs CBC & Chem 7: 03/24/17 06:32 03/24/17 06:32
--- NOTE | 2017-03-25 09:51 | Query-Infection ---
Dear ____Manisha Date:__03/25/2017 Clerk Travel Reservations/CDS:__Madonna Phone#:__[phone] Exercise your independent professional judgment when responding to this query. Questions asked do not imply a particular answer is desired or expected. We greatly appreciate your clarification on this issue. Clinical Documentation States: 26 Year old female was admitted on 03/21/2017 for increasing redness of the rash over the last 1 week. The IM (Dr. Dyer) Progress note " Assessment and Plan - Patient Problems (1) Cellulitis Current Visit: Yes Status: Acute." The Hospitalist (Dr. Branch) progress note on 03/23/17 states "SIRS/leukocytosis, continue antibiotics, follow cultures." Clinical findings show: (please check applicable parameters) WBC: 13.8 NE: 98 RR: 24 Infection, known /suspected, with some of the following indicators; Specify the infection: 3 General parameters [ ] Fever (core temp >38.30C or 100.40F) [ ] Hypothermia (core temp <36C) [X] Heart rate >90 bpm [X] Tachypnea: >20 bpm or pCO2 < 32 mmHg [ ] Altered mental status [ ] Significant edema / +ve fluid balance (>20 ml/kg 24 h) [ ] Hyperglycemia (Bl. glucose >110 mg/dl) w/o diabetes Inflammatory parameters [X] Leukocytosis (white blood cell count >12,000/l) [ ] Leukopenia (white blood cell count <4,000/l) [ ] Bandemia (immature WBC > 10%) [ ] Leucocyte Left Shift [ ] Plasma procalcitonin>2 SD above the normal value Hemodynamic and tissue perfusion parameters [ ] Arterial hypotension(SBP <90 mmHg, MAP <70 mmHg,or a SBP drop >40 mmHg in adults) [ ] Hyperlactatemia (>3 mmol/l) [ ] Anion Gap (> 11mEG/l) [ ] Decreased capillary refill or mottling Organ dysfunction parameters [ ] Arterial hypoxemia (PaO2/FIO2 <300) [ ] Creatinine increase =0.5 mg/dl [ ] Acute oliguria (urine output <0.5 ml | kg |h or 45 mM/l for at least 2 hrs) [ ] Coagulation abnormalities (INR >1.5 or activated partial thromboplastin time >60 s) [ ] Ileus (absent sundeep wel sounds) [ ] Thrombocytopenia (platelet count <100,000/l) [ ] Hyperbilirubinemia (plasma total bilirubin >4 mg/dl) According to the clinical indications above, can Bacteremia be further specified? If so, please indicate below and in your Progress Notes and/ or Discharge Summary. Indicate if the condition was present on admission. PHYSICIAN RESPONSE: [ ] Sepsis [ ] Severe Sepsis [ ] Septic Shock [ ] Septicemia [ ] Sepsis now resolved [ ] SIRS due to non-infectious cause with organ dysfunction [ ] SIRS due to non-infectious cause without organ dysfunction [ ] Other: [ ] Comment/Explanation: Present on Admission: [ ] Yes (Y) [X ] Clinically undeterminable (W) [ ] No (N) [ ] Ruled Out Please also document response in your Progress Notes and/or Discharge Summary and indicate if the condition was present on admission Notes: SIRS/ SIRS WITH ORGAN DYSFUNCTION Systemic inflammatory response syndrome (SIRS) generally refers to the systemic response to trauma/mehta or other insult such as Acute Myocardial Infarction, Acute Pancreatitis, and Major Surgery with symptoms including fever, tachycardia , tachypnea, and leukocytosis (1). BACTEREMIA Presence of viable bacteria in the circulating blood (2). This term is reserved for patients that do not manifest above SIRS response. SEPTICEMIA Generally refers to a systemic disease associated with the presence of pathological microorganisms or toxins in the blood, which can include bacteria, viruses, fungi or other organisms (1). SEPSIS Generally refers to SIRS due infection (1). SEVERE SEPSIS Generally refers to sepsis associated with acute organ dysfunction (1). SEPTIC SHOCK Generally refers to circulatory failure associated with severe sepsis (2), and defined as hypotension or hypoperfusion despite adequate fluid resuscitation (1 hour) (3). REFERENCES: 1. [place] [employer]/Society of Critical Care Medicine Consensus Conference. Definitions for sepsis and organ failure and guidelines for the use of innovative therapies in sepsis. Critical Care Med 1992;20:864 - 74. 2. Ayan cho MM, Hood MP, [place] AMEE, Chuy E, Vasquez D, Chuy D, Napier J, [place] SM , Eduardo JL, Maurice G; International Sepsis Definitions Conference. 2001 SCCM/ESICM/ACCP/ATS/SIS International Sepsis Definitions Conference. Intensive Care Med. 2002 Apr;29(4):530-8. Epub 2002Jun 29. Review. PubMed PMID:[id number] 3. ICD-9-CM Official Guidelines for Coding and Reporting 4. Medscape Drugs, Diseases and Procedures references 5. [employer] Textbook of Internal Medicine. 18th Edition MTDD
--- NOTE | 2017-03-25 10:12 | Consultation ---
History of Present Illness - Reason for Consult Consult date: 03/25/17 Reason for consult: Mental Health Evaluation Requesting physician: SONIA SELBY - Chief Complaint Chief complaint: "I just want to get better" - History of Present Psychiatric Illness 26 y.o. white female presenting to [facility] for eczema. Today patient is calm and cooperative during the assessment. She stated that she have been dealing with skin issues for while. She stated that she has a hx of MRSA. She stated having relationship issues with her current boyfriend, the father of her 4 children. She stated that he took the kids and moved in with a family member. She stated that he and some of her family don't want her around because of her medical problems (MRSA). She stated that this has "heightened" her depression (feeling sad, lack energy, and hopeless) and anxiety. She rate her depression/anxiety 5/ 10, with 10 being the worse. She stated struggling with depression/anxiety since she was 13 yrs old. She stated that she worries about not being able to see her kids now and in the future. She denies sleep disturbance and a poor appetite. She denies SI/HI's and AVH's. She denies recreational drug use and alcohol consumption (etoh). Patient stated taking Zoloft for the past six month with no therapeutic effect. Medications and Allergies Allergies Allergy/AdvReac Type Severity Reaction Status Date / Time No Known Allergies Allergy Verified 02/23/13 07:46 Home Medications Medication Instructions Recorded Confirmed Last Taken Type Ferrous Sulfate [Feosol 325 MG tab] 325 mg PO BID #60 tablet 02/23/13 03/22/17 Unknown Rx Ibuprofen [Motrin] 800 mg PO TID PRN #30 tablet 02/23/13 03/22/17 Unknown Rx [id number]/Iron Fum/Folic/Docusate 1 each PO QDAY #30 tablet 02/23/13 03/22/17 Unknown Rx [ 19 Tablet] Docusate Sodium [Colace] 100 mg PO BID #60 capsule 02/25/13 03/22/17 Unknown Rx Loratadine [Loratadine] 10 mg PO DAILY 08/20/15 03/22/17 08/18/15 History Ibuprofen [Motrin 600 MG tab] 600 mg PO Q8H PRN #30 tablet 08/21/15 03/22/17 Unknown Rx Multivitamin with Iron [Tab-A-Meagan 1 each PO DAILY #30 tablet 08/21/15 03/22/17 Unknown Rx with Iron] oxyCODONE /ACETAMINOPHEN [Percocet 1 tab PO Q6HR PRN #30 tablet 08/21/15 Unknown Rx 5/325] HYDROcodone/APAP 5-325 [[place] 1 each PO Q6HR PRN #20 tablet 03/09/16 03/22/17 Unknown Rx 5-325 mg TAB] Triamcinolone 0.5% 0.5 cream TP BID PRN #1 03/09/16 03/22/17 Unknown Rx diphenhydrAMINE [Benadryl CAP] 25 mg PO Q8HR PRN #20 capsule 03/09/16 03/22/17 Unknown Rx Sertraline [Zoloft] 50 mg PO DAILY 03/22/17 03/22/17 1 Day Ago History ~03/21/17 Active Meds: Active Medications Acetaminophen (Tylenol) 650 mg PO Q4H PRN PRN Reason: Pain MILD(1-3)/Fever >100.5/CEDEÑO Bisacodyl (Dulcolax) 10 mg OR QDAY PRN PRN Reason: Constipation unrelieved by MOM Cefuroxime Axetil (Ceftin) 500 mg PO Q12HR [facility] Diphenhydramine HCl (Benadryl) 25 mg PO Q8H PRN PRN Reason: Itching Last Admin: 03/22/17 08:46 Dose: 25 mg Docusate Sodium (Colace) 100 mg PO BID [facility] Last Admin: 03/25/17 09:02 Dose: 100 mg Enoxaparin Sodium (Lovenox) 40 mg SUB-Q QDAY@2200 [facility] Last Admin: 03/24/17 21:44 Dose: Not Given Famotidine (Pepcid) 20 mg PO BID [facility] Last Admin: 03/25/17 09:02 Dose: 20 mg Loratadine (Claritin) 10 mg PO DAILY [facility] Last Admin: 03/25/17 09:02 Dose: 10 mg Magnesium Hydroxide (Milk Of Magnesia) 30 ml PO Q4H PRN PRN Reason: Constipation Methylprednisolone Sodium Succinate (Solu-Medrol) 60 mg IV Q8HR [facility] Last Admin: 03/25/17 05:20 Dose: 60 mg Morphine Sulfate (Morphine) 2 mg IV Q6H PRN PRN Reason: Pain, Moderate (4-6) Last Admin: 03/25/17 09:03 Dose: 2 mg Ondansetron HCl (Zofran) 4 mg IV Q8H PRN PRN Reason: N/V unrelieved by Reglan Oxycodone/Acetaminophen (Percocet 5/325) 1 tab PO Q6H PRN PRN Reason: Pain, Moderate (4-6) Last Admin: 03/24/17 13:13 Dose: 1 tab Sertraline HCl (Zoloft) 50 mg PO QDAY [facility] Last Admin: 03/25/17 09:02 Dose: 50 mg Triamcinolone Acetonide (Kenalog) 0.5 applic TP BID PRN PRN Reason: itchiness Zolpidem Tartrate (Ambien) 5 mg PO QHS PRN PRN Reason: Insomnia Past psychiatric history - Past Medical History Past Medical History: other (Eczema) Past Surgical History: No surgical history - past Psychiatric treatment and history Psych: Anxiety, Depression psychiatric treatment history: SSRI (Zoloft) started 6 months by a "doctor in a hospital" per the patient. Mother recovering alcoholic. - Social History Social history: other (Homeless) Mental Status Exam - Vital signs Last Vital Signs Temp 97.9 F 03/25/17 07:44 Pulse 53 L 03/25/17 07:44 Resp 20 03/25/17 07:44 BP 146/96 03/25/17 07:44 Pulse Ox 95 03/25/17 07:44 - Exam Narrative exam: MSE: Appearance: calm, cooperative Behavior: good eye contact Speech: regular rate and tone Mood: "okay" "A little anxious" Affect: congruent to mood Thought Process: logical Thought Content: denies SI/HI's and AVH's Motor Activity: sitting up in bed Cognition: A/O x3 Insight: appropriate Judgment: appropriate Results Result Diagrams: 03/24/17 06:32 03/24/17 06:32 All other labs normal. Assessment and Plan Assessment and plan: Impression: MDD. SEBASTIAN. Today patient is calm and cooperative during the assessment. DDx: Adjustment DO Recommendation/Plan: Start Wellbutrin 150 mg PO daily for depression and Vistaril 25 mg PO Q6hrs for anxiety. Discussed possible suicidality/medication induced bowen with patient reference Wellbutrin. Patient given outpatient psy services for [facility]. Relay Adjuster involvement, patient is homeless.
[2017-03-25] MEDS: CEFTIN PO SCH ×2 (12:26→21:57)
[2017-03-25] MEDS: WELLBUTRIN XL PO SCH (12:31)
[2017-03-25] MEDS: VISTARIL PO PRN (15:25)
--- NOTE | 2017-03-25 17:38 | Progress Note ---
Assessment and Plan - Patient Problems (1) Cellulitis Current Visit: Yes Status: Acute Qualifiers: Site of cellulitis: unspecified site Qualified Code(s): L03.90 - Cellulitis , unspecified Plan to address problem: patient has rash which is consistent with eczema all over the body. Some of the lesions are erythematous. Also painful. Patient had MRSA infection in December 2016. Patient was apparently admitted and treated.patient may have infection of the skin. We will treat it as cellulitis.patient initiated on clindamycin IV every 8 hours. (2) Eczema Current Visit: Yes Status: Chronic Qualifiers: Eczema type: unspecified Qualified Code(s): L30.9 - Dermatitis, unspecified Plan to address problem: Patient has rash all over and the lesions are inflamed. Patient initiated on IV Solu-Medrol 60 mg every 8 hours.patient not initiated on steroid creams/ ointment. We will see the response for IV Solu-Medrol (3) Chronic pain Current Visit: Yes Status: Acute Qualifiers: Chronic pain type: chronic pain syndrome Qualified Code(s): G89.4 - Chronic pain syndrome Plan to address problem: patient is here on IV morphine for the pain (4) DVT prophylaxis Current Visit: Yes Status: Acute Plan to address problem: patient initiated on Lovenox. Subjective Date of service: 03/25/17 Principal diagnosis: SIRS Interval history: Much improvement present Objective - Exam Narrative Exam: lying in bed comfortably - Constitutional Vitals: Vital Signs - 12hr 03/25/17 03/25/17 07:44 15:57 Temperature 97.9 F 98.0 F Pulse Rate 53 L 65 Respiratory 20 20 Rate Blood Pressure 146/96 128/65 O2 Sat by Pulse 95 94 Oximetry General appearance: Present: no acute distress, well-nourished - EENT Eyes: PERRL, EOM intact ENT: hearing intact, clear oral mucosa Ears: bilateral: normal - Neck Neck: supple, normal ROM - Respiratory Respiratory effort: normal Respiratory: bilateral: CTA - Breasts Breasts: normal - Cardiovascular Rhythm: regular Heart Sounds: Present: S1 & S2. Absent: gallop, rub Extremities: pulses intact, No edema, normal color, Full ROM Extremity abnormal: other (Eryrthema present) - Gastrointestinal General gastrointestinal: Present: soft, non-tender, non-distended, normal bowel sounds - Genitourinary Female genitourinary: deferred, normal - Integumentary Integumentary: clear, warm, dry - Musculoskeletal Musculoskeletal: 1, strength equal bilaterally - Neurologic Neurologic: moves all extremities - Psychiatric Psychiatric: appropriate mood/affect - Allied health notes Allied health notes reviewed: nursing, case management - Labs CBC & Chem 7: 03/24/17 06:32 03/24/17 06:32
[2017-03-25] MEDS: PERCOCET 5/325 PO PRN (19:27)
[2017-03-25] MEDS: LOVENOX SUB-Q SCH (21:57)
[2017-03-26] MEDS: VISTARIL PO PRN (00:05)
[2017-03-26] MEDS: MORPHINE IV PRN ×2 (00:05→11:05)
[2017-03-26 08:36] VITALS: BP 151/99
[2017-03-26] MEDS: WELLBUTRIN XL PO SCH (09:40)
[2017-03-26] MEDS: PEPCID PO SCH (09:40)
[2017-03-26] MEDS: CEFTIN PO SCH (09:40)
[2017-03-26] MEDS: COLACE PO SCH (09:41)
[2017-03-26] MEDS: CLARITIN PO SCH (09:41)
[2017-03-26] MEDS ORDERED: WELLBUTRIN PO SCH (10:00)
--- NOTE | 2017-03-26 10:42 | Progress Note ---
Assessment and Plan Assessment: 1) SIRS: resolved. Etiology most likely extensive eczema +/- superimposed celullitis. 2) Extensive eczema with superimposed cellulitis. CRP=0.4 - remarkably better 3) History of MRSA septicemia in January 2017 Plan: -continue ceftin 500 mg po q12h total 7 days -change IV steroids to PO -remove midline I am signing off Thank you Dr Dyer for your consultation, will follow up with you. Malinda Kerns MD Infectious Diseases Specialist [facility] M [phone] O [phone] Subjective Date of service: 03/26/17 Principal diagnosis: SIRS Interval history: Skin feels much better, she still feels weak. No fever. Microbiology: Blood cultures: 03/21 neg Current Antimicrobials: ceftin 03/25 Previous Antimicrobials: Clindamycin 03/21 vanco 03/22 Objective - Exam Narrative Exam: General appearance: Alert in NAD, conversant, anxious Eyes: anicteric sclerae, moist conjunctivae; no lid-lag; PERRLA HENT: Atraumatic; oropharynx clear Neck: Trachea midline; supple, no thyromegaly or lymphadenopathy Lungs: CTA CV: RRR, no murmurs Abdomen: Soft, non-tender Extremities: No peripheral edema or extremity lymphadenopathy Skin: extensive scaly thick skin plaques with peripheral erythema and tenderness covering entire body including face - better Psych: anxious. Neuro: alert and oriented x 3. Moving all extermities Lines: No CVL / PICC - Constitutional Vitals: Vital Signs Temp Pulse Resp BP Pulse Ox 98.5 F 58 L 20 151/99 96 03/26/17 08:12 03/26/17 08:12 03/26/17 08:12 03/26/17 08:12 03/26/17 08:12 Temperature -Last 24 Hours Temperature 98.5 F Temperature 97.5 F Temperature 98.0 F - Labs CBC & Chem 7: 03/24/17 06:32 03/24/17 06:32
--- NOTE | 2017-03-26 13:47 | Discharge Summary ---
Providers - Providers Date of Admission: 03/21/17 23:06 Date of discharge: 03/26/17 Attending physician: JEFFERY SEGUNDO 03/21/17 23:32 Consult to Physician [CONS] Routine Consulting Provider: SONIA SELBY Reason For Exam: Eczema/cellulitis Place consult to:: dr. sinha Notified:: Phone number called:: [phone] Was contact made?: Yes If yes, spoke with:: dr. sinha Time called:: 09:18 03/21/17 23:33 Consult to Wound/ET Nurse [CONS] Routine Reason For Exam: wound eval 03/23/17 09:42 Consult to Mental Health [CONS] Routine Reason For Exam: Increased anxiety d/t medical condition Place consult to:: Notified:: Yes Phone number called:: [phone] Was contact made?: Yes If yes, spoke with:: Kassandra Time called:: 09:40 03/23/17 11:03 Midline [Consult to PICC Line RN] [CONS] Routine Reason For Exam: midline Type Line:: Odalys Primary care physician: BLAIR ELI Hospitalization Condition: Stable Hospital course: Assessment and Plan Pateint admitted for cellulitis superimposed on Eczema-Improved and back to baseline. 1) SIRS: resolved. Etiology most likely extensive eczema +/- superimposed celullitis. 2) Extensive eczema with superimposed cellulitis. CRP=0.4 - remarkably better 3) History of MRSA septicemia in January 2017 Plan: -continue ceftin 500 mg po q12h total 7 days -change IV steroids to PO -remove midline Disposition: DC-01 TO HOME OR SELFCARE - Discharge Diagnoses (1) Cellulitis Status: Acute Qualifiers: Site of cellulitis: unspecified site Qualified Code(s): L03.90 - Cellulitis , unspecified (2) Eczema Status: Chronic Qualifiers: Eczema type: unspecified Qualified Code(s): L30.9 - Dermatitis, unspecified (3) Chronic pain Status: Acute Qualifiers: Chronic pain type: chronic pain syndrome Qualified Code(s): G89.4 - Chronic pain syndrome (4) DVT prophylaxis Status: Acute Core Measure Documentation - Palliative Care Palliative Care/ Comfort Measures: Not Applicable - Core Measures Any of the following diagnoses?: none Exam - Constitutional Vitals: Temp Pulse Resp BP Pulse Ox 98.5 F 58 L 20 151/99 96 03/26/17 08:12 03/26/17 08:12 03/26/17 08:12 03/26/17 08:12 03/26/17 08:12 General appearance: Present: no acute distress, well-nourished - EENT Eyes: Present: PERRL ENT: hearing intact, clear oral mucosa - Neck Neck: Present: supple, normal ROM - Respiratory Respiratory effort: normal Respiratory: bilateral: CTA - Cardiovascular Heart Sounds: Present: S1 & S2. Absent: rub, click - Extremities Extremities: pulses symmetrical, No edema Peripheral Pulses: within normal limits - Abdominal General gastrointestinal: Present: soft, non-tender, non-distended, normal bowel sounds Female genitourinary: Present: normal - Integumentary Integumentary: Present: clear, warm, dry - Musculoskeletal Musculoskeletal: gait normal, strength equal bilaterally - Psychiatric Psychiatric: appropriate mood/affect, intact judgment & insight - Neurologic Neurologic: CNII-XII intact, moves all extremities Plan Activity: no restrictions Diet: regular Follow up with: BLAIR ELI MD [Primary Care Provider] - 7 Days
== END 2017-03-26 14:35 | disposition home or self-care (01) | DRG 603 ==
LOC: ED 15:41 → 3A 23:06
PROVIDERS: ADMIT Internal Medicine; ATTEND Internal Medicine
DX: L03.90 Cellulitis, unspecified (principal); L30.9 Dermatitis, unspecified; G89.29 Other chronic pain; R65.10 Systemic inflammatory response syndrome (SIRS) of non-infectious origin without acute organ dysfunction; F17.200 Nicotine dependence, unspecified, uncomplicated; F32.9 Major depressive disorder, single episode, unspecified; F41.1 Generalized anxiety disorder
CPT/HCPCS: 36415; 80048; 80202; 82140; 85025; 86140; 87040; 96365; 96375; 99285; J1650; J1885; J2270; J2920; J2930; J3370; J7040; J7042; J7050; Q0177

== ENCOUNTER 2018-08-30 15:41 | Emergency (ER) | payer MEDICAID, OTHER ==
[2018-08-30 16:13] VITALS: BP 161/114
[2018-08-30] MEDS ORDERED: NACL 0.9% 1000 ML 1,000 ML IV ONE (16:25)
[2018-08-30 17:14] LABS: Basophils % (Auto) 0.2 % (0.0-1.8); Eosinophils # (Auto) 0.1 K/mm3 (0.0-0.4); Eosinophils % (Auto) 0.9 % (0.0-4.3); Hemoglobin 12.6 gm/dl (10.1-14.3); Lymphocytes # (Auto) 0.9 K/mm3 (1.2-5.4); Lymphocytes % (Auto) 11.9 % (13.4-35.0); Mean Corpuscular HGB Conc 33 % (30-34); Mean Corpuscular Volume 95 fl (79-97); Monocytes # (Auto) 0.2 K/mm3 (0.0-0.8); Monocytes % (Auto) 3.4 % (0.0-7.3); Platelet Count 254 K/mm3 (140-440); Red Blood Count 3.99 M/mm3 (3.65-5.03); Red Cell Distribution Width 14.3 % (13.2-15.2)
[2018-08-30 17:27] LABS: Alanine Aminotransferase 17 units/L (7-56); Albumin 3.9 g/dL (3.9-5); BUN/Creatinine Ratio 44; Blood Urea Nitrogen 22 mg/dL (7-17); Calcium 9.3 mg/dL (8.4-10.2); Hemolysis Index 31
--- NOTE | 2018-08-30 18:03 | Emergency Department Report ---
ED General Adult HPI - General Chief complaint: Arrhythmia/Palpitations Stated complaint: MH EVAL Time Seen by Provider: 08/30/18 16:18 Source: patient, EMS Mode of arrival: Stretcher Limitations: No Limitations - History of Present Illness Initial comments: The patient presents to the emergency department with a chief complaint of feeling bad after snorting ice. The patient states that her mouth feels really dry and she also feels like she has a lump in the throat. Patient also complains of having heart palpitations. Patient denies headache, sore throat, or abdominal pain. The patient consumed this drug approximately 3 hours before arrival to the ED -: Sudden Radiation: non-radiation Severity scale (0 -10): 0 Consistency: constant Improves with: none Worsens with: none Associated Symptoms: denies other symptoms Treatments Prior to Arrival: none - Related Data Home Medications Medication Instructions Recorded Confirmed Last Taken Loratadine 10 mg PO DAILY 08/20/15 03/22/17 08/18/15 Sertraline [Zoloft] 50 mg PO DAILY 03/22/17 03/22/17 1 Day Ago ~03/21/17 Previous Rx's Medication Instructions Recorded Last Taken Type Ferrous Sulfate [Feosol 325 MG tab] 325 mg PO BID #60 tablet 02/23/13 Unknown Rx Ibuprofen [Motrin] 800 mg PO TID PRN #30 tablet 02/23/13 Unknown Rx [id number]/Iron Fum/Folic/Docusate 1 each PO QDAY #30 tablet 02/23/13 Unknown Rx [ 19 Tablet] Docusate Sodium [Colace] 100 mg PO BID #60 capsule 02/25/13 Unknown Rx Ibuprofen [Motrin 600 MG tab] 600 mg PO Q8H PRN #30 tablet 08/21/15 Unknown Rx Multivitamin with Iron [Tab-A-Meagan 1 each PO DAILY #30 tablet 08/21/15 Unknown Rx with Iron] oxyCODONE /ACETAMINOPHEN [Percocet 1 tab PO Q6HR PRN #30 tablet 08/21/15 Unknown Rx 5/325] HYDROcodone/APAP 5-325 [[place] 1 each PO Q6HR PRN #20 tablet 03/09/16 Unknown Rx 5-325 mg TAB] Triamcinolone 0.5% 0.5 cream TP BID PRN #1 03/09/16 Unknown Rx diphenhydrAMINE [Benadryl CAP] 25 mg PO Q8HR PRN #20 capsule 03/09/16 Unknown Rx Cefuroxime Axetil [Ceftin] 500 mg PO Q12H #14 ml 03/26/17 Unknown Rx Triamcinolone Aceton 0.1% (Nf) 1 applic TP BID 30 Days #1 tube 03/26/17 Unknown Rx [Kenalog (NF)] oxyCODONE /ACETAMINOPHEN [Percocet 1 tab PO Q6HR PRN #15 tablet 03/26/17 Unknown Rx 5/325] Allergies Allergy/AdvReac Type Severity Reaction Status Date / Time No Known Allergies Allergy Verified 08/30/18 16:13 ED Review of Systems ROS: Stated complaint: MH EVAL Other details as noted in HPI Comment: All other systems reviewed and negative Constitutional: denies: chills, fever Eyes: denies: eye pain, eye discharge, vision change ENT: denies: ear pain, throat pain Respiratory: denies: cough, shortness of breath, wheezing Cardiovascular: denies: chest pain, palpitations Endocrine: no symptoms reported Gastrointestinal: denies: abdominal pain, nausea, diarrhea Genitourinary: denies: urgency, dysuria, discharge Musculoskeletal: denies: back pain, joint swelling, arthralgia Skin: denies: rash, lesions Neurological: denies: headache, weakness, paresthesias Psychiatric: denies: anxiety, depression Hematological/Lymphatic: denies: easy bleeding, easy bruising ED Past Medical Hx - Past Medical History Previous Medical History?: Yes Hx Hypertension: Yes Hx Congestive Heart Failure: No Hx Diabetes: No Hx Deep Vein Thrombosis: No Hx Renal Disease: No Hx Sickle Cell Disease: No Hx Seizures: No Hx Psychiatric Treatment: Yes (anxiety, depression) Hx Asthma: No Hx COPD: No Hx HIV: No Additional medical history: eczema, Skin rash - Surgical History Past Surgical History?: Yes Hx Pacemaker: No Hx Internal Defibrillator: No Additional Surgical History: 4 c-sections - Social History Smoking Status: Current Every Day Smoker Substance Use Type: Alcohol, Marijuana, Methamphetamines - Medications Home Medications: Home Medications Medication Instructions Recorded Confirmed Last Taken Type Ferrous Sulfate [Feosol 325 MG tab] 325 mg PO BID #60 tablet 02/23/13 03/22/17 Unknown Rx Ibuprofen [Motrin] 800 mg PO TID PRN #30 tablet 02/23/13 03/22/17 Unknown Rx [id number]/Iron Fum/Folic/Docusate 1 each PO QDAY #30 tablet 02/23/13 03/22/17 Unknown Rx [ 19 Tablet] Docusate Sodium [Colace] 100 mg PO BID #60 capsule 02/25/13 03/22/17 Unknown Rx Loratadine 10 mg PO DAILY 08/20/15 03/22/17 08/18/15 History Ibuprofen [Motrin 600 MG tab] 600 mg PO Q8H PRN #30 tablet 08/21/15 03/22/17 Unknown Rx Multivitamin with Iron [Tab-A-Meagan 1 each PO DAILY #30 tablet 08/21/15 03/22/17 Unknown Rx with Iron] oxyCODONE /ACETAMINOPHEN [Percocet 1 tab PO Q6HR PRN #30 tablet 08/21/15 03/22/17 Unknown Rx 5/325] HYDROcodone/APAP 5-325 [[place] 1 each PO Q6HR PRN #20 tablet 03/09/16 03/22/17 Unknown Rx 5-325 mg TAB] Triamcinolone 0.5% 0.5 cream TP BID PRN #1 03/09/16 03/22/17 Unknown Rx diphenhydrAMINE [Benadryl CAP] 25 mg PO Q8HR PRN #20 capsule 03/09/16 03/22/17 Unknown Rx Sertraline [Zoloft] 50 mg PO DAILY 03/22/17 03/22/17 1 Day Ago History ~03/21/17 Cefuroxime Axetil [Ceftin] 500 mg PO Q12H #14 ml 03/26/17 Unknown Rx Triamcinolone Aceton 0.1% (Nf) 1 applic TP BID 30 Days #1 tube 03/26/17 Unknown Rx [Kenalog (NF)] oxyCODONE /ACETAMINOPHEN [Percocet 1 tab PO Q6HR PRN #15 tablet 03/26/17 Unknown Rx 5/325] ED Physical Exam - General Limitations: No Limitations General appearance: alert, in no apparent distress - Head Head exam: Present: atraumatic, normocephalic - Eye Eye exam: Present: normal appearance, PERRL, EOMI (ywh) - ENT ENT exam: Present: mucous membranes dry - Neck Neck exam: Present: normal inspection - Respiratory Respiratory exam: Present: normal lung sounds bilaterally. Absent: respiratory distress, wheezes, rales (insulin syringes as) - Cardiovascular Cardiovascular Exam: Present: regular rate, normal rhythm. Absent: systolic murmur, diastolic murmur, rubs, gallop - GI/Abdominal GI/Abdominal exam: Present: soft, normal bowel sounds. Absent: distended, tenderness ( heart heart to be a) - Extremities Exam Extremities exam: Present: normal inspection - Back Exam Back exam: Present: normal inspection - Neurological Exam Neurological exam: Present: alert, oriented X3, CN II-XII intact. Absent: motor sensory deficit - Psychiatric Psychiatric exam: Present: normal affect, normal mood - Skin Skin exam: Present: warm, dry, intact, normal color. Absent: rash ED Course Vital Signs 08/30/18 08/30/18 16:10 17:36 Temperature 99.1 F Pulse Rate 124 H Respiratory 16 16 Rate Blood Pressure 161/114 O2 Sat by Pulse 100 Oximetry ED Medical Decision Making - Lab Data Result diagrams: 08/30/18 16:57 08/30/18 16:57 Lab Results 08/30/18 08/30/18 Range/Units 16:57 16:57 WBC 7.2 (4.5-11.0) K/mm3 RBC 3.99 (3.65-5.03) M/mm3 Hgb 12.6 (10.1-14.3) gm/dl Hct 38.0 (30.3-42.9) % MCV 95 (79-97) fl MCH 32 (28-32) pg MCHC 33 (30-34) % RDW 14.3 (13.2-15.2) % Plt Count 254 (140-440) K/mm3 Lymph % (Auto) 11.9 L (13.4-35.0) % [place] % (Auto) 3.4 (0.0-7.3) % Eos % (Auto) 0.9 (0.0-4.3) % Baso % (Auto) 0.2 (0.0-1.8) % Lymph # 0.9 L (1.2-5.4) K/mm3 [place] # 0.2 (0.0-0.8) K/mm3 Eos # 0.1 (0.0-0.4) K/mm3 Baso # 0.0 (0.0-0.1) K/mm3 Seg Neutrophils % 83.6 H (40.0-70.0) % Seg Neutrophils # 6.1 (1.8-7.7) K/mm3 Sodium 138 (137-145) mmol/L Potassium 3.8 (3.6-5.0) mmol/L Chloride 102.4 (98-107) mmol/L Carbon Dioxide 25 (22-30) mmol/L Anion Gap 14 mmol/L BUN 22 H (7-17) mg/dL Creatinine 0.5 L (0.7-1.2) mg/dL Estimated GFR > 60 ml/min BUN/Creatinine Ratio 44 % Glucose 115 H (65-100) mg/dL Calcium 9.3 (8.4-10.2) mg/dL Total Bilirubin 0.30 (0.1-1.2) mg/dL AST 16 (5-40) units/L ALT 17 (7-56) units/L Alkaline Phosphatase 69 (35-129) units/L Albumin 3.9 (3.9-5) g/dL - Medical Decision Making The patient declined IV access for IV fluids. Patient also refused to give us a urine Critical care attestation.: If time is entered above; I have spent that time in minutes in the direct care of this critically ill patient, excluding procedure time. ED Disposition Clinical Impression: Drug use Disposition: DC-01 TO HOME OR SELFCARE Is pt being admited?: No Does the pt Need Aspirin: No Condition: Stable Instructions: Methamphetamine Abuse (ED) Additional Instructions: return if worse Referrals: PRIMARY CARE, [Primary Care Provider] - 3-5 Days [facility] [Provider Group] - 3-5 Days [facility] [Provider Group] - 3-5 Days Time of Disposition: 18:18
[2018-08-30 18:31] LABS: Bilirubin,Urine NEG (Negative); Blood,Urine SM (Negative); Color,Urine Yellow (Yellow); Mucus,Urine FEW /HPF; Protein,Urine <15 mg/dL mg/dL (Negative); Urobilinogen,Urine < 2.0 mg/dL (<2.0)
[2018-08-30 18:38] LABS: Benzodiazepines Screen,Urine PRESUMPTIVE NEGATIVE; Methadone Screen,Urine PRESUMPTIVE NEGATIVE; Opiate Screen,Urine PRESUMPTIVE NEGATIVE
[2018-08-30 19:00] LABS: Amphetamine Screen,Urine PRESUMPTIVE POSITIVE; Cannabinoid Screen,Urine PRESUMPTIVE POSITIVE; Cocaine Screen,Urine PRESUMPTIVE POSITIVE
== END 2018-08-30 18:24 | disposition home or self-care (01) ==
LOC: ED 15:41 → EEVIPCON 15:41 → ED 18:24
DX: F15.90 Other stimulant use, unspecified, uncomplicated (principal); F12.10 Cannabis abuse, uncomplicated; F17.200 Nicotine dependence, unspecified, uncomplicated; F41.9 Anxiety disorder, unspecified; F32.9 Major depressive disorder, single episode, unspecified; I10 Essential (primary) hypertension
CPT/HCPCS: 36415; 80053; 80307; 81001; 85025; 93005; 93010; 99283; J7030